=== PATIENT | male | born 1950 | race Caucasian/White ===

== ENCOUNTER 2017-09-29 23:45 | Emergency (ER) | payer OTHER ==
[~2017-09-29] VITALS: Ht 165.1 cm; Wt 68.0 kg
[~2017-09-29 23:45] MED LIST: CIPROFLOXACIN500 M1 PO; CLONAZEPAM 0.50.5 M1 PO; NORCO 5-325 TA1 EACH PO; SIMVASTATIN40 MG PO
[2017-09-30] MEDS ORDERED: ALLEGRA
[2017-09-30] MEDS ORDERED: OMEPRAZOLE (00:01)
[2017-09-30] MEDS ORDERED: SLEEP MEDICATION (00:01)
[2017-09-30 00:55] VITALS: BP 110/60
== END 2017-09-30 00:55 | disposition home or self-care (01) ==
LOC: M.ERS 23:45
DX: K91.840 Postprocedural hemorrhage of a digestive system organ or structure following a digestive system procedure (principal); E78.00 Pure hypercholesterolemia, unspecified; Z88.5 Allergy status to narcotic agent